=== PATIENT | female | born 1955 | race Caucasian/White ===

== ENCOUNTER 2017-08-19 19:35 | Inpatient (IN) | payer OTHER, BC ==
[2017-08-19] MEDS: TETANUS/DIPHTHERIA TOXOID ADULT 0.5 ML VIAL IM (21:30)
[2017-08-19] MEDS: traMADol HCL 50 MG TAB PO (22:55)
[2017-08-19] MEDS: SODIUM CHLOR 0.9% 1000 ML INJ 1,000 ML IV (23:30)
[2017-08-19 23:42] LABS: AUTOMATED NEUTROPHIL # 12.4 TH/MM3 (1.8-7.7); BASOPHIL % 0.2 % (0.0-2.0); EOSINOPHIL # 0.1 TH/MM3 (0-0.4); EOSINOPHIL % 0.8 % (0.0-4.0); HEMATOCRIT 38.7 % (35.0-46.0); HEMO FLAGS DIFF FINAL; HEMOGLOBIN 13.1 GM/DL (11.6-15.3); LYMPH % 16.3 % (9.0-44.0); LYMPHOCYTE # 2.7 TH/MM3 (1.0-4.8); MEAN CELL VOLUME 89.2 FL (80.0-100.0); MEAN CORPUSCULAR HEMOGLOBIN 30.2 PG (27.0-34.0); MEAN CORPUSCULAR HGB CONC 33.8 % (32.0-36.0); MEAN PLATELET VOLUME 8.3 FL (7.0-11.0); MONOCYTE # 1.5 TH/MM3 (0-0.9); NEUT % 73.7 % (16.0-70.0); PLATELET COUNT 235 TH/MM3 (150-450); RED BLOOD COUNT 4.34 MIL/MM3 (4.00-5.30); RED CELL DISTRIBUTION WIDTH 15.2 % (11.6-17.2); WHITE BLOOD COUNT 16.8 TH/MM3 (4.0-11.0)
[2017-08-19 23:52] LABS: APTT (PATIENT) 21.7 SEC (24.3-30.1); PROTHROMBIN TIME - PATIENT 9.9 SEC (9.8-11.6)
[2017-08-19 23:58] LABS: ALBUMIN 3.9 GM/DL (3.4-5.0); ALT (GPT) 171 U/L (10-53); ANION GAP 11 MEQ/L (5-15); AST (GOT) 149 U/L (15-37); BICARBONATE 22.4 MEQ/L (21.0-32.0); BLOOD UREA NITROGEN 15 MG/DL (7-18); CALCIUM 8.6 MG/DL (8.5-10.1); CHLORIDE 107 MEQ/L (98-107); CREATININE 0.74 MG/DL (0.50-1.00); GLOMERULAR FILTRATION RATE 80 ML/MIN (>89); GLUCOSE,RANDOM 123 MG/DL (74-106); POTASSIUM 3.8 MEQ/L (3.5-5.1); SODIUM (NA) 140 MEQ/L (136-145)
[2017-08-20 00:03] LABS: ALKALINE PHOSPHATASE 69 U/L (45-117); CREATINE KINASE 653 U/L (26-192); TOTAL BILIRUBIN ADULT 0.5 MG/DL (0.2-1.0); TOTAL PROTEIN 7.3 GM/DL (6.4-8.2); TROPONIN I LESS THAN 0.02 NG/ML (0.02-0.05)
[2017-08-20 00:15] LABS: CKMB 8.4 NG/ML (0.5-3.6); CKMB % 1.3 % (0.0-4.0)
[2017-08-20 00:51] LABS: ALCOHOL 192 MG/DL (0-5)
[2017-08-20] MEDS ORDERED: SODIUM CHLORIDE 0.9% FLUSH 10 ML FLUSH IV FLUSH (01:45)
[2017-08-20] MEDS ORDERED: MORPHINE SULFATE 2 MG/ML INJ IV PUSH (04:45)
[2017-08-20] MEDS ORDERED: FLUMAZENIL 0.5 MG/5 ML VIAL IV PUSH (04:45)
[2017-08-20] MEDS ORDERED: LORazepam 2 MG TAB PO (04:45)
[2017-08-20] MEDS ORDERED: LORazepam 1 MG TAB PO (04:45)
[2017-08-20] MEDS ORDERED: LORazepam 2 MG/ML VIAL IV PUSH ×4 (04:45)
[2017-08-20 04:53] LABS: AUTOMATED NEUTROPHIL # 6.7 TH/MM3 (1.8-7.7); BASOPHIL % 0.2 % (0.0-2.0); EOSINOPHIL % 0.3 % (0.0-4.0); HEMO FLAGS DIFF FINAL; HEMOGLOBIN 11.4 GM/DL (11.6-15.3); LYMPH % 8.4 % (9.0-44.0); LYMPHOCYTE # 0.7 TH/MM3 (1.0-4.8); MEAN CORPUSCULAR HEMOGLOBIN 30.2 PG (27.0-34.0); MEAN CORPUSCULAR HGB CONC 33.5 % (32.0-36.0); MONO % 10.7 % (0.0-8.0); MONOCYTE # 0.9 TH/MM3 (0-0.9); NEUT % 80.4 % (16.0-70.0); PLATELET COUNT 172 TH/MM3 (150-450); RED BLOOD COUNT 3.78 MIL/MM3 (4.00-5.30); RED CELL DISTRIBUTION WIDTH 15.3 % (11.6-17.2); WHITE BLOOD COUNT 8.4 TH/MM3 (4.0-11.0)
[2017-08-20 05:21] LABS: ALBUMIN 3.5 GM/DL (3.4-5.0); ANION GAP 11 MEQ/L (5-15); AST (GOT) 112 U/L (15-37); BICARBONATE 23.1 MEQ/L (21.0-32.0); BLOOD UREA NITROGEN 13 MG/DL (7-18); CHLORIDE 107 MEQ/L (98-107); CREATININE 0.49 MG/DL (0.50-1.00); GLOMERULAR FILTRATION RATE 128 ML/MIN (>89); GLUCOSE,RANDOM 107 MG/DL (74-106); POTASSIUM 3.5 MEQ/L (3.5-5.1); SODIUM (NA) 141 MEQ/L (136-145)
[2017-08-20 05:25] LABS: ALKALINE PHOSPHATASE 59 U/L (45-117); ALT (GPT) 147 U/L (10-53); CREATINE KINASE 576 U/L (26-192); TOTAL BILIRUBIN ADULT 0.8 MG/DL (0.2-1.0); TOTAL PROTEIN 6.7 GM/DL (6.4-8.2)
[2017-08-20 05:41] LABS: CKMB 5.9 NG/ML (0.5-3.6)
[2017-08-20] MEDS: REMOVE OLD PATCH T-DERMAL (08:00)
[2017-08-20] MEDS ORDERED: LACTULOSE SYRUP 20 GM/30 ML CUP PO (08:00)
[2017-08-20] MEDS: SODIUM CHLOR 0.9% 1000 ML INJ 1,000 ML IV ×2 (10:14→15:44)
[2017-08-20] MEDS: LIDOCAINE HCL 5% PATCH T-DERMAL (10:15)
[2017-08-20] MEDS: fentaNYL 50 MCG/HR PATCH T-DERMAL (10:21)
[2017-08-20] MEDS: DOCUSATE SODIUM 50 MG/SENNA 8.6 MG TAB PO ×2 (10:23→20:51)
[2017-08-20] MEDS: POLYETHYLENE GLYCOL 17 GM PKG PO (10:23)
[2017-08-20] MEDS: SODIUM CHLORIDE 0.9% FLUSH 10 ML FLUSH IV FLUSH ×2 (10:24→20:50)
[2017-08-20] MEDS: METHOCARBAMOL 500 MG TAB PO ×3 (10:32→20:51)
[2017-08-20 11:54] LABS: HEPATITIS A AB IGM NEGATIVE (NEGATIVE); HEPATITIS B CORE AB IGM NEGATIVE (NEGATIVE); HEPATITIS B SURFACE ANTIGEN NEGATIVE (NEGATIVE); HEPATITIS C AB IgG NEGATIVE (NEGATIVE)
[2017-08-20] MEDS: traMADol HCL 50 MG TAB PO ×2 (15:43→20:49)
[2017-08-20 16:44] LABS: BILIRUBIN, URINE NEG (NEG); BLOOD, URINE NEG (NEG); GLUCOSE,URINE NEG (NEG); KETONE, URINE NEG (NEG); NITRITE,URINE NEG (NEG); SQUAMOUS EPITHELIAL CELL URINE 2 /hpf (0-5); URINE COLOR LIGHT-YELLOW (YELLW/STRAW); URINE LEUKOCYTE ESTERASE NEG (NEG)
[2017-08-20 16:45] LABS: COMMENT (UR) CULT NOT INDICATED; CULTURE IF INDICATED CULT NOT INDICATED
[2017-08-20 16:53] LABS: AMPHETAMINE, URINE NEG (NEG); BARBITURATES, URINE NEG (NEG); BENZODIAZEPINE,URINE NEG (NEG); CANNABINOIDS, URINE NEG (NEG); COCAINE, URINE NEG (NEG)
[2017-08-20] MEDS: chlordiazePOXIDE 25 MG CAP PO (20:51)
[2017-08-21] MEDS: METHOCARBAMOL 500 MG TAB PO ×2 (04:43→12:07)
[2017-08-21] MEDS: SODIUM CHLORIDE 0.9% FLUSH 10 ML FLUSH IV FLUSH (07:19)
[2017-08-21] MEDS: POLYETHYLENE GLYCOL 17 GM PKG PO (07:19)
[2017-08-21] MEDS: traMADol HCL 50 MG TAB PO ×2 (07:19→12:12)
[2017-08-21] MEDS: chlordiazePOXIDE 25 MG CAP PO ×2 (07:19→12:07)
[2017-08-21] MEDS: DOCUSATE SODIUM 50 MG/SENNA 8.6 MG TAB PO (07:19)
[2017-08-21] MEDS: LIDOCAINE HCL 5% PATCH T-DERMAL (07:20)
== END 2017-08-21 13:19 | disposition home or self-care (01) | DRG 551 ==
LOC: NEDA 08-20 00:57 → NEPHCDU 08-20 02:22 → NEPC 19:35 → N05B 08-20 15:42
PROC: 0HQ0XZZ Repair Scalp Skin, External Approach (ICD-10-PCS; principal; 2017-08-20)
PROC: 0HQ1XZZ Repair Face Skin, External Approach (ICD-10-PCS; 2017-08-20)
DX: S32.19XA Other fracture of sacrum, initial encounter for closed fracture (principal); S32.401A Unspecified fracture of right acetabulum, initial encounter for closed fracture; I95.9 Hypotension, unspecified; S32.039A Unspecified fracture of third lumbar vertebra, initial encounter for closed fracture; S06.0X9A Concussion with loss of consciousness of unspecified duration, initial encounter; S40.011A Contusion of right shoulder, initial encounter; S01.01XA Laceration without foreign body of scalp, initial encounter; S32.591A Other specified fracture of right pubis, initial encounter for closed fracture; R55 Syncope and collapse; S50.01XA Contusion of right elbow, initial encounter; S70.01XA Contusion of right hip, initial encounter; F10.129 Alcohol abuse with intoxication, unspecified; S01.81XA Laceration without foreign body of other part of head, initial encounter; Y90.6 Blood alcohol level of 120-199 mg/100 ml; V29.9XXA Motorcycle rider (driver) (passenger) injured in unspecified traffic accident, initial encounter; Z79.82 Long term (current) use of aspirin
CPT/HCPCS: 12001; 12011; 70450; 70486; 71045; 72125; 73030; 73080; 73502; 74176; 80053; 80074; 80307; 81001; 82550; 82552; 83735; 84484; 85025; 85610; 85730; 93005; 93306; 93880; 94150; 96360; 97162-GP; 97530-GP; 99285-25

== ENCOUNTER 2017-09-05 13:02 | Emergency (ER) | payer SELFPAY ==
[~2017-09-05 13:02] MED LIST: CANE/ALUMINUM/A1 MIS; PERI PO; TRAM50 PO; WALKER WHEELS/F1 MIS
[2017-09-05 13:03] VITALS: BP 173/87; PULSE 84; RESP 14; TEMP 98.2; O2SAT 98
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
== END 2017-09-05 14:17 | disposition home or self-care (01) ==
LOC: NEPK 13:02
DX: S01.01XD Laceration without foreign body of scalp, subsequent encounter (principal); V29.9XXD Motorcycle rider (driver) (passenger) injured in unspecified traffic accident, subsequent encounter; Z48.02 Encounter for removal of sutures
CPT/HCPCS: 99281